=== PATIENT | male | born 1955 | race African-American/Black ===

== ENCOUNTER 2018-10-26 00:59 | Emergency (ER) | payer BC ==
[~2018-10-26] VITALS: Ht 170.2 cm; Wt 68.0 kg
[2018-10-26] MEDS ORDERED: FAMOTIDINE 20MG/2ML VIAL IV ONE (03:45)
[2018-10-26] MEDS ORDERED: ONDANSETRON HCL 4MG/2ML INJ IV ONE (03:45)
[2018-10-26 03:53] LABS: BASOPHILS % 0.6 % (0.0-2.0); EOSINOPHILS % 1.1 % (0.0-5.0); HEMATOCRIT. 41.8 % (42.0-52.0); HEMOGLOBIN. 14.3 g/dL (14.0-18.0); LYMPHOCYTES % 25.7 % (20.0-50.0); MEAN CORPUSCULAR HEMOGLOBIN 31.9 pg (28.0-32.0); MEAN CORPUSCULAR VOLUME 93.4 fL (80.0-94.0); MEAN PLATELET VOLUME 7.5 fl (7.4-10.4); MONOCYTES % 10.8 % (2.0-8.0); NEUTROPHILS % 61.8 % (40.0-76.0); PLATELET 273 x1000/uL (130-400); RED BLOOD CELL COUNT 4.48 mill/uL (4.7-6.1); RED CELL DISTRIBUTION WIDTH 13.5 % (11.6-14.6)
[2018-10-26 03:59] LABS: CHLORIDE 106 mEq/L (98-107)
[2018-10-26 04:01] LABS: PROTHROMBIN TIME 10.5 sec (9.6-11.0)
[2018-10-26] MEDS ORDERED: MORPHINE SULFATE 4 MG/ML CPJ (NOT FOR IM USE) IV ONE (04:15)
[2018-10-26 06:31] LABS: CLARITY URINE CLEAR (CLEAR); COLOR URINE YELLOW (YELLOW); KETONES URINE NEGATIVE (NEGATIVE); LEUKOCYTE ESTERASE URINE NEGATIVE (NEGATIVE); NITRITE URINE NEGATIVE (NEGATIVE); OCCULT BLOOD URINE NEGATIVE (NEGATIVE); PH URINE 7.5 (4.5-8.0); PROTEIN URINE 1+ (NEGATIVE); SPECIFIC GRAVITY URINE 1.013 (1.005-1.030); UROBILINOGEN URINE 0.2 E.U./dL (0.2-1.0)
[2018-10-26 07:08] VITALS: BP 127/68
== END 2018-10-26 07:10 | disposition home or self-care (01) ==
LOC: ER 00:59
DX: N28.1 Cyst of kidney, acquired (principal); K76.0 Fatty (change of) liver, not elsewhere classified; I10 Essential (primary) hypertension; F17.200 Nicotine dependence, unspecified, uncomplicated; F12.10 Cannabis abuse, uncomplicated
CPT/HCPCS: 36415; 76705; 80053; 81003; 83690; 85025; 85610; 96374; 96375; 99284; J2270; J2405; J3490; Z7610

== ENCOUNTER 2018-12-22 11:47 | Emergency (ER) | payer BC ==
[~2018-12-22] VITALS: Ht 167.6 cm; Wt 69.0 kg
[2018-12-22 13:33] LABS: BASOPHILS % 0.8 % (0.0-2.0); EOSINOPHILS % 3.2 % (0.0-5.0); HEMATOCRIT. 45.6 % (42.0-52.0); HEMOGLOBIN. 15.3 g/dL (14.0-18.0); LYMPHOCYTES % 35.9 % (20.0-50.0); MEAN CORPUSCULAR VOLUME 92.3 fL (80.0-94.0); MEAN PLATELET VOLUME 8.1 fl (7.4-10.4); MONOCYTES % 7.9 % (2.0-8.0); NEUTROPHILS % 52.2 % (40.0-76.0); PLATELET 281 x1000/uL (130-400); RED BLOOD CELL COUNT 4.94 mill/uL (4.7-6.1); RED CELL DISTRIBUTION WIDTH 12.8 % (11.6-14.6)
[2018-12-22 13:38] LABS: PROTHROMBIN TIME 10.5 sec (9.6-11.0)
[2018-12-22 13:40] LABS: CHLORIDE 110 mEq/L (98-107)
[2018-12-22 15:00] VITALS: BP 149/82
== END 2018-12-22 15:12 | disposition home or self-care (01) ==
LOC: ER 11:47
DX: R10.11 Right upper quadrant pain (principal); I10 Essential (primary) hypertension; F12.10 Cannabis abuse, uncomplicated
CPT/HCPCS: 36415; 74176; 80053; 83690; 85025; 85610; 99284; Z7610